=== PATIENT | male | born 1950 | race Caucasian/White ===

== ENCOUNTER → 2018-03-29 | Outpatient (CLI) | payer MEDICARE ==
--- NOTE | 2018-03-29 14:19 | CT ---
EXAMINATION TYPE: CT brain wo con DATE OF EXAM: 03/29/2018 COMPARISON: None INDICATION: Patient fell and hit head 2 weeks ago. Headaches x1 week. DLP: 849.2 mGycm, Automated exposure control for dose reduction was used. CONTRAST: None CT of the brain is performed utilizing 3 mm thick sections through the posterior fossa and 3 mm thick sections through the remaining calvarium. Study is performed within 24 hours of arrival to the hosp [facility]. No abnormal hyperdensity is present to suggest an acute intracranial hemorrhage. No mass lesion is evident. No acute infarcts are evident. Ventricles and sulci are appropriate for the patient age. Paranasal sinuses and mastoid air cells within the [id number]-nsrx are clear. IMPRESSIONS: 1. Normal CT Brain
== END | disposition home or self-care (01) ==
LOC: RADCTMAIN 13:46
PROVIDERS: ATTEND Physician Assistant
DX: S09.90XD Unspecified injury of head, subsequent encounter (principal)
CPT/HCPCS: 70450

== ENCOUNTER → 2019-02-05 | Outpatient (CLI) | payer MEDICARE ==
--- NOTE | 2019-02-05 08:41 | MR ---
EXAMINATION TYPE: MR brain wo/w con DATE OF EXAM: 02/05/2019 COMPARISON: CT brain March 29, 2018. HISTORY: Headache TECHNIQUE: Multiplanar, multisequence images of the brain and brainstem is performed without and with IV contras t, utilizing 12 mL intravenous Gadavist . FINDINGS: Diffusion weighted images demonstrate no evidence of a recent infarct or other diffusion ab normality. There is no worrisome extra-axial fluid collection. The ventricular system and cisternal spaces are normal in size and appearance. The brain volume is age appropriate. Scattered foci of T2 hyperintensity are seen throughout the white matter bilaterally. Approximately 15-20 scattered lesio ns are seen. Lesions are nonspecific in appearance and distribution but are felt most likely on basis of product of chronic small vessel ischemic change in patient of this age. T2 Star weighted images s how no suspicious intraparenchymal blood product. Midline structures demonstrate normal morphology. The craniocervical junction appears within normal limits. Post contrast images demonstrate no abnormal enhancement. The dural venous sinuses appear pa tent. Mild mucosal thickening involving the ethmoid sinuses bilaterally. IMPRESSION: Mild to borderline moderate nonspecific white matter changes may be on basis of altered v ascular mechanics related to product of migraine headaches and/or product of chronic small vessel isc hemic change.
== END | disposition home or self-care (01) ==
LOC: RADMRIMAIN 06:52
PROVIDERS: ATTEND Family Medicine
DX: R90.89 Other abnormal findings on diagnostic imaging of central nervous system (principal)
CPT/HCPCS: 70553; A9585

== ENCOUNTER 2019-12-06 08:09 | Day surgery (SDC) | payer MEDICARE ==
[2019-12-04 13:21] VITALS: BMI 33.0
[~2019-12-06 08:09] MED LIST: LACTATED RINGERS 1,000 ML IV SCH
[2019-12-06 08:34] VITALS: RESP 16; TEMP 97.5
[2019-12-06] MEDS ORDERED: LIDOCAINE 1% (10MG/ML) FOR IV START INTRADERMA ONE (08:35)
[2019-12-06] MEDS ORDERED: PROPOFOL 10 MG/ML 20 ML VIAL IV ONE (08:44)
--- NOTE | 2019-12-06 09:18 | P.PCN ---
Date of Procedure: 12/06/19 Description of Procedure: BRIEF HISTORY: Patient is a pleasant 69-year-old male presenting for high-risk colon screening, history of colon polyps for outpatient colonoscopy. No change in bowel habits, blood per rectum or abdominal pain. Last colonoscopy 5 years ago. PROCEDURE PERFORMED: Colonoscopy with polypectomy. PREOPERATIVE DIAGNOSIS: Personal history of colon polyps, high risk colon cancer screening, colonoscopy 5 years ago. ESTIMATED BLOOD LOSS: Minimal. IV sedation per Anesthesia. PROCEDURE: After informed consent was obtained, the patient, was brought into the endoscopy unit. IV sedation was administered by Anesthesia under continuous monitoring. Digital rectal examination was normal. Initially the Olympus CF-190 flexible video colonoscope was then inserted in the rectum, gradually advanced into the cecum without any difficulty. Careful examination was performed as the scope was gradually being withdrawn. Ileocecal valve and the appendiceal orifice were visualized and appeared normal. Prep was excellent. Mucosa of the cecum, ascending colon, transverse colon, descending colon, sigmoid colon, and rectum appeared normal. A few scattered diverticula noted in the left colon. Diminutive 2 mm ascending colon polyp removed with cold forcep polypectomy. Retroflexion was performed in the rectum and no lesions were seen., Low-grade internal hemorrhoids noted. The patient tolerated the procedure well. IMPRESSION: Diminutive ascending colon polyp removed with cold forcep polypectomy. Mild left colonic diverticulosis. RECOMMENDATIONS: Findings of this examination were discussed with the patient his . Okay to resume diet. Okay to resume medications. Await pathology from polypectomy. Would recommend repeat colonoscopy in 7 years for colon polyps, pending pathology from polypectomy.
[2019-12-06 09:27] VITALS: BP 109/86; PULSE 70
== END 2019-12-06 10:00 | disposition home or self-care (01) ==
LOC: ORWHC2ENDO 08:09
PROVIDERS: ATTEND Internal Medicine
DX: Z12.11 Encounter for screening for malignant neoplasm of colon (principal); D12.2 Benign neoplasm of ascending colon; K57.30 Diverticulosis of large intestine without perforation or abscess without bleeding; I10 Essential (primary) hypertension; Z86.010 Personal history of colon polyps; Z79.899 Other long term (current) drug therapy; Z90.89 Acquired absence of other organs; Z98.41 Cataract extraction status, right eye; Z98.42 Cataract extraction status, left eye; Z98.890 Other specified postprocedural states; Z85.828 Personal history of other malignant neoplasm of skin
CPT/HCPCS: 88305; 45380; J2704

== ENCOUNTER → 2020-01-10 | Outpatient (CLI) | payer MEDICARE | END | disposition home or self-care (01) | LOC: LABWHC1 09:27 | PROVIDERS: ATTEND Family Medicine | DX: Z20.828 Contact with and (suspected) exposure to other viral communicable diseases (principal) | CPT/HCPCS: U0003; C9803 ==

== ENCOUNTER → 2024-01-07 | Outpatient (CLI) | payer MEDICARE ==
[2024-01-07 11:14] LABS: Partial Thromboplastin Time 30.1 sec (22.0-30.0); Prothrombin Time 11.3 sec (10.0-12.5)
[2024-01-07 11:35] LABS: Appearance,Urine Clear (Clear); Bilirubin,Urine Negative (Negative); Blood,Urine Negative (Negative); Color,Urine Light Yellow; Glucose,Urine (UA) Negative (Negative); Ketones,Urine Negative (Negative); Leukocyte Esterase,Urine Negative (Negative); Nitrite,Urine Negative (Negative); Protein,Urine Negative (Negative); Specific Gravity,Urine 1.022 (1.001-1.035); Urobilinogen,Urine <2.0 mg/dL (<2.0)
[2024-01-07 12:56] LABS: Basophils # (A) 0.03 X 10*3/uL (0.00-0.10); Basophils % (A) 0.6 %; Eosinophils # (A) 0.14 X 10*3/uL (0.04-0.35); Eosinophils % (A) 2.8 %; HCT 48.1 % (39.6-50.0); HGB 15.7 g/dL (13.0-17.0); Lymphocytes # (A) 1.15 X 10*3/uL (0.90-5.00); Lymphocytes % (A) 23.2 %; MCH 28.3 pg (27.0-32.0); MCHC 32.6 g/dL (32.0-37.0); MCV 86.7 FL (80.0-97.0); Mean Platelet Volume 11.4 FL (9.5-12.2); Monocytes # (A) 0.55 X 10*3/uL (0.20-1.00); Monocytes % (A) 11.1 %; NRBC Per 100 WBC 0 X 10*3/uL (0.00-0.01); Neutrophils # (A) 3.02 X 10*3/uL (1.80-7.70); Neutrophils % (A) 61.1 %; Platelet Count 208 X 10*3/uL (140-440); RBC 5.55 X 10*6/uL (4.40-5.60); RDW 13.1 % (11.5-14.5); WBC 4.95 X 10*3/uL (4.50-10.00)
[2024-01-07 13:03] LABS: ALT 27 U/L (10-49); AST 21 U/L (14-35); Albumin 4.3 g/dL (3.8-4.9); Albumin/Globulin Ratio 1.79 Ratio (1.60-3.17); Alkaline Phosphatase 104 U/L (41-126); BUN/Creat Ratio 23.22 Ratio (12.00-20.00); Blood Urea Nitrogen 20.9 mg/dL (9.0-27.0); Calcium 9.4 mg/dL (8.7-10.3); Carbon Dioxide 26.3 mmol/L (21.6-31.8); Chloride 104 mmol/L (96-109); Globulin 2.4 g/dL (1.6-3.3); Glucose 98 mg/dL (70-110); Potassium 4.5 mmol/L (3.5-5.5); Sodium 139 mmol/L (135-145); Total Bilirubin 0.7 mg/dL (0.3-1.2); Total Protein 6.7 g/dL (6.2-8.2)
== END | disposition home or self-care (01) ==
LOC: LABPAT 08:25
PROVIDERS: ATTEND Orthopaedic Surgery Orthopaedic Surgery of the Spine
DX: Z01.818 Encounter for other preprocedural examination (principal); M54.10 Radiculopathy, site unspecified
CPT/HCPCS: 80053; 81003; 85025; 85610; 85730; 86850; 86900; 86901; 87070; 93005

== ENCOUNTER 2024-01-18 05:45 | Observation (INO) | payer MEDICARE ==
[2024-01-16 11:05] VITALS: BMI 31.6
[~2024-01-18 05:45] MED LIST changes: +HYDROmorphone 0.5 MG/0.5 ML SYRINGE IVP PRN; -LACTATED RINGERS 1,000 ML IV SCH; +LIDOCAINE 1% (10MG/ML) FOR IV START INTRADERMA PRN
[2024-01-18] MEDS: IV FLUID CONTINUATION 1,000 ML IV ONE ×2 (06:43→06:51)
[2024-01-18] MEDS: ONDANSETRON 4 MG/2 ML VIAL IVP ONE (06:57)
[2024-01-18] MEDS: LACTATED RINGERS 1,000 ML IV SCH (06:57)
[2024-01-18] MEDS ORDERED: fentaNYL (PF) 50 MCG/ML 2 ML AMP ONE (07:25)
[2024-01-18] MEDS ORDERED: SUCCINYLCHOLINE CHLORIDE 200 MG/10 ML VIAL IV ONE (07:25)
[2024-01-18] MEDS ORDERED: ROCURONIUM 10 MG/ML (5 ML VIAL) IV ONE (07:25)
[2024-01-18] MEDS ORDERED: KETAMINE HCL IN 0.9 % NACL 50 MG/5 ML SYRINGE ONE (07:25)
[2024-01-18] MEDS ORDERED: TRANEXAMIC 1,000 MG/100ML-NACL PREMIX BAG ONE (07:25)
[2024-01-18] MEDS ORDERED: PHENYLEPHRINE 10 MG/ML VIAL ONE (07:25)
[2024-01-18] MEDS ORDERED: ePHEDrine 50 MG/ML 1 ML VIAL ONE (07:25)
[2024-01-18] MEDS ORDERED: PROPOFOL 10 MG/ML 20 ML VIAL IV ONE (07:25)
[2024-01-18] MEDS ORDERED: MIDAZOLAM 2 MG/2 ML VIAL ONE (07:25)
[2024-01-18] MEDS ORDERED: NEOSTIGMINE 1 MG/ML 10 ML VIAL ONE (07:25)
[2024-01-18] MEDS ORDERED: LIDOCAINE 1% INJ 10MG/ML (20 ML MDV) ONE (07:25)
[2024-01-18] MEDS ORDERED: PHENYLEPHRINE-0.9% NACL SYG 1,000 MCG/10 ML SYRINGE ONE (07:25)
[2024-01-18] MEDS ORDERED: GLYCOPYRROLATE 0.2 MG/ML 2 ML VIAL ONE (07:25)
[2024-01-18] MEDS: ceFAZolin 1,000 MG in SODIUM CHLORIDE 0.9% IRRIGATIO 1,000 ML IRRIGATION PRN ×2 (08:00→10:00)
[2024-01-18] MEDS: LIDOCAINE 1%-EPI 1:100,000 20 ML VIAL SQ ONE (08:10)
[2024-01-18] MEDS: LACTATED RINGERS 1,000 ML IV ONE (09:00)
[2024-01-18] MEDS ORDERED: diazePAM 5 MG TAB PO PRN (12:29)
[2024-01-18] MEDS ORDERED: ONDANSETRON 4 MG/2 ML VIAL IVP PRN (12:29)
--- NOTE | 2024-01-18 12:36 | P.OP ---
Date of Procedure: 01/18/24 Preoperative Diagnosis: Severe spinal stenosis L3-4 L4-5, lower extreme radiculopathy, neurogenic claudication, low back pain, facet arthrosis, degenerative disc disease Postoperative Diagnosis: Same Anesthesia: GETA Pathology: none sent Condition: stable Disposition: PACU Description of Procedure: DESCRIPTION OF PROCEDURE(S): BRIEF OPERATIVE NOTE Preoperative Diagnosis: Severe spinal stenosis L3-4 L4-5, lower extreme radiculopathy, neurogenic claudication, low back pain, facet arthrosis, degenerative disc disease Postoperative Diagnosis: Same Procedure: Laminectomy and decompression L3-4 L4-[address] navigation aided Minimally invasive Posterior lateral decompression and facet fusion L3-4 L4-5 Minimally invasive Transforaminal lumbar interbody fusion for a 360 fusion L3-4 L4-5 Discectomy for decompression L3-4 L4-5 Placement of interbody graft L3-4 L4-5 Use of computer navigation for fusion Local autogenous bone grafting Use of bone graft extenders Surgeon: Dr. [employer] R[employer] Representative: Ashish LONG who is present throughout the entire the case persistence during positioning, dissection, exposure, visualization, and all crucial elements of the case as well as closure. Anesthesia: General anesthesia per Dr. Ocasio Estimated blood loss: Approximately 350 mL Complications: None apparent Components implanted: K2M minimally invasive [place] pedicle screw system withscrews measuring 6.5 mm in diameter to rods one [place] interbody cage and 1 expandable interbody cage with 10 mL of osteo amp bio4 bone graft substitute and 30 mL of the BX bone fibers to supplement the local autogenous bone graft and bone marrow aspirate Disposition: To recovery room in good stable condition. OPERATIVE INDICATIONS The patient has had severe issues at their lower extremity in her lower back over the past several years with significant worsening over the past several months. Over the past few months the patient had pain at their back and their lower extremities. The patient is having severe radicular symptoms at their lower extremity with weakness. The patient is having significant pain in their back. They are unable to obtain any comfort. We did aggressive conservative treatment with medications therapy and interventional pain management however thery were not having any relief. The patient also showed evidence severe stenosis where decompression alone would cause global iatrogenic instability at the levels.. The patient has been through conservative treatment. We discussed various treatment options including surgery, and the patient wishes to proceed with surgery We discussed the risk, patient's alternatives and benefits of surgery including but not limited to, risk of bleeding risk of infection, risk of need for further surgery, risk of decreased, loss of motion, muscle function, malunion nonunion, hardware failure, nerve damage, paralysis, heart attack, blindness and . They understood issues with the current pandemic and the possibility of exposure. OPERATIVE SUMMARY After discussing all the risks, patient alternatives and benefits at length, the patient elected to proceed with surgical intervention, signed informed consent, and presented for their procedure. The patient was seen and examined in the preoperative holding area and the surgical site was marked. The patient was given antibiotics and brought to the operating room. The patient was sedated and intubated by anesthesia in standard fashion. The patient was positioned on to the operating room table in a prone position on the appropriate frame which was well-padded and well molded. We were careful to pad any bony prominences and pressure points. We were careful to maintain the patient's cervical spine and good neutral alignment and position throughout. The patient was prepped and draped in a normal standard fashion. An appropriate timeout and keystone protocol performed. We were able to proceed with the surgery. The local wound area was infiltrated with local anesthetic. Over the right iliac crest I was able to make small stab incisions and establish a guidepin screw fixation to the iliac crest 2. I was able place the computer referencing device over the guidepins to establish an appropriate reference point for the Ziem CT navigation. We then were able to place patient in an appropriate drape and do a navigation spin for visualization and 3-D reconstruction of the lumbar spine. I was able utilize C-arm guidance and navigation to establish appropriate position over the pedicles bilaterally at the appropriate levels at L3-4 and 5. With the appropriate levels confirmed was able to make small incisions over the appropriate pedicle sites bilaterally. Utilizing the computer navigation device I was able to establish bony landmarks at the right iliac crest for a bony reference point for the navigation device. I was able to establish a Jamshidi needle over the lateral aspect of the pedicle and advanced the trocar into the pedicle being careful not to breech superiorly inferiorly medially or laterally using computer navigation device. Position was confirmed regularly with AP and lateral images on C-arm and with the computer navigation device at the appropriate levels bilaterally. I was able to establish the trocar into the pedicle appropriately into the posterior aspect of the vertebral body bilaterally at the appropriate levels. This was done at each of the pedicle positions and each of the vertebrae. I was able place the guidewire into the trocar and into the vertebral body appropriately under C-arm guidance. Dissection was taken down over the wire to the appropriate starting position for the screw placed. The appropriate length screw was chosen, threaded over the guidewire and screwed appropriately into the pedicle and vertebral body under C-arm guidance in excellent alignment and position with good bony purchase. This is done at each of the screw sites at the appropriate levels at L3-L4 and L5. With the screws intact I extended the incision to connect the screw hole sites on the most symptomatic side on the left. I dissected down to establish access over the pars and lamina to the base of the spinous process. I was able to expose the facet joint. The capsule the facet was taken down and showed some facet arthrosis at the joint. I was able to use a combination of curettes and Kerrison rongeurs and a high-speed drill to take down the facet joint and do a facetectomy. There was severe central and bilateral foraminal stenosis and severe thickening of the ligamentum flavum. This was all taken down well with the decompression at L3-4 and L4-5. I was able get excellent foraminal decompression and central decompression with undermining across midline to perform a laminectomy centrally and contralaterally. As able get good central decompression. The ligamentum flavum was taken down to further decompress centrally and at bilateral neural foramen. I was able to expose the disc space and visualize the traversing nerve root. Note was made of some disc protrusion and disc herniation that was abutting the traversing nerve root at the level causing further compression of the nerve root. I was able to establish a annulo skinny at the appropriate level protecting soft tissue and neural structures. Note was made of some severe disc desiccation at the disc. I performed a complete discectomy with accommodation of curettes and rasps and scrapers. Discectomy provided further decompression of the neural structures. I was able get good endplate preparation at the disc space. I sized for the appropriate size interbody spacer protecting the soft tissue and neural structures. The wound was copiously irrigated and suctioned dry. There is no evidence of any dural tear or leak. I was able to pack the disc space with local autogenous bone graft as well as a small amount of bone graft which was also placed into the interbody cage itself. Protecting the soft tissue structures and neural structures I was able place the interbody cage in good alignment and good position with good fit and fill at the interbody space. Position was confirmed with C-arm guidance. At L4-5 I used a 9 expandable interbody cage and at L3-4 I used an expandable interbody cage which was expanded to appropriate tension under C-arm guidance. Both were found to be in good alignment good position with good stability. Good hemostasis maintained. There is no evidence of any dural tear or leak. The wound was irrigated and suctioned dry. With the hardware intact, intraoperative C-arm imaging was again taken which showed good alignment and position of the hardware at the appropriate levels at L3-4 and 5. We were then able to measure, contour and place the rods and appropriate hardware bilaterally. I was able to place capcrews, tighten them down, and torque them with the torque screwdriver appropriately. With this intact I was able to place the local autogenous bone graft with additional bone graft enhancer as necessary into the posterior lateral gutters over the decorticated transverse processes and facet joints on the contralateral side. The remainder of the bone graft was placed over the facet joint on the contrala teral side after taking down the facet joint capsule. With the bone graft intact, a stable construct, and good decompression at the appropriate levels, we were able to proceed with closure. Good hemostasis was maintained. There is no evidence of dural tear or leak. The fascia was closed for a watertight closure. he subcuticular tissue was closed with absorbable suture. The wound was cleaned and dried and dressed with the appropriate dressing. The drapes were broken down. The patient was gently rolled back onto their hospital bed being careful to maintain their cervical spine and good neutral alignment and position. They were woken up by anesthesia, extubated, and brought to the recovery room in good stable condition. The patient will be admitted to the hospital for appropriate postoperative care, medical management and monitoring. We will continue to follow them closely about the postoperative course.
--- NOTE | 2024-01-18 13:13 | XR ---
EXAMINATION TYPE: XR lumbar spine 2 or 3V, FL guidance operating room DATE OF EXAM: 01/18/2024 11:58 AM COMPARISON: None CLINICAL INDICATION: Male, 74 years old with history of PLDF, , FLUOROSCOPY 41 SEC FL 8.8947 DAP dose 5 images are submitted. Posterior and interbody lumbar fusion [facility], , 01/18/2024 1:10 PM
[2024-01-18] MEDS: droPERidol 5 MG/2 ML VIAL IVP ONE (14:04)
[2024-01-18] MEDS: SODIUM CHLORIDE 0.9% 1,000 ML IV SCH (14:15)
[2024-01-18] MEDS: HYDROmorphone 1 MG/ML 1 ML SYRINGE IVP PRN (15:51)
[2024-01-18] MEDS: lisinopriL 20 MG TAB PO SCH (17:05)
[2024-01-18] MEDS: GABAPENTIN 300 MG CAP PO SCH (20:14)
[2024-01-18] MEDS: CYCLOBENZAPRINE 10 MG TAB PO PRN (20:14)
--- NOTE | 2024-01-18 22:19 | P.CONS ---
History of Present Illness - Reason for Consult Consult date: 01/18/24 Medical management - Chief Complaint Lumbar disc decompression and laminectomy - History of Present Illness Patient is a 74-year-old male with a past medical history of hypertension, osteoarthritis, history of skin cancers, self status post removal from scalp, history of lumbar decompression and fusion and left knee replacement was admitted to the hospital for laminectomy and decompression L3-L4 and L4-L5. Patient was found to have severe spinal stenosis L3-L4 L4-L5 with lower extremity radiculopathy and neurogenic claudication and low back pain. Patient tolerated the procedure very well. Currently resting in bed. Awake alert and oriented. No complaints of chest pain or shortness of breath. Back pain is controlled with medications. Denied any nausea or vomiting. Postoperatively blood pressure 146/70 pulse 92 respiratory 18 and room air. Laboratory data is not available at this time. Review of Systems Constitutional: Patient denies any fever or chills . No generalized weakness or weight loss. Abdomen: Patient denied nausea vomiting and diarrhea and abdominal pain. Cardiovascular: Patient denies any chest pain or short of breath no palpitatio ns. Respiratory: patient denied any cough or sputum production. No shortness of breath Neurologic: Patient denied any numbness or tingling. no headache. Musculoskeletal: Patient denies any complaints of joint swelling or deformity. Skin: Negative Psychiatric: Negative Endocrine: No heat or cold intolerance. No recent weight gain. Genitourinary: No dysuria or hematuria. All other 14 point ROS negative except the above Past Medical History Past Medical History: Cancer, Hypertension, Osteoarthritis (OA) Additional Past Medical History / Comment(s): skin cancer-squamous cell History of Any Multi-Drug Resistant Organisms: None Reported Past Surgical History: Orthopedic Surgery, Tonsillectomy Additional Past Surgical History / Comment(s): winifred cataracts, left knee arthroscopy, skin cancer removed from scalp,pain clinic proceduresl,lt total hip,lt knee total replacement, Lumbar decompression and fusion Past Anesthesia/Blood Transfusion Reactions: No Reported Reaction Additional Past Anesthesia/Blood Transfusion Reaction / Comm: no blood transfusions Past Psychological History: No Psychological Hx Reported Smoking Status: Never smoker Past Alcohol Use History: Rare Past Drug Use History: None Reported - Past Family History Mother Family Medical History: Cancer Additional Family Medical History / Comment(s): breast Medications and Allergies Home Medications Medication Instructions Recorded Confirmed Type lisinopriL 20 mg PO BID@0700,1700 12/04/19 01/18/24 History Acetaminophen [Tylenol Arthritis] 650 mg PO BID 01/16/24 01/18/24 History Gabapentin [Neurontin] 300 mg PO BID 01/16/24 01/18/24 History amLODIPine [Norvasc] 5 mg PO DAILY@0700 01/16/24 01/18/24 History Allergies Allergy/AdvReac Type Severity Reaction Status Date / Time No Known Allergies Allergy Verified 01/18/24 06:18 Physical Exam Vitals: Vital Signs Temp Pulse Resp BP Pulse Ox 01/18/24 19:24 98.1 F 92 18 146/70 98 01/18/24 14:45 98.9 F 91 17 124/66 93 L 01/18/24 13:16 88 16 138/63 98 01/18/24 12:47 79 16 132/59 93 L 01/18/24 12:35 83 16 131/63 96 01/18/24 12:19 97.6 F 77 16 120/57 98 01/18/24 06:22 97.5 F L 78 16 153/72 95 Intake and Output 01/18/24 01/18/24 01/18/24 06:59 14:59 22:59 Intake Total 400 1102 Output Total 700 Balance 400 402 Intake: IV 400 1102 Output: Urine 350 Estimated Blood Loss 350 Other: Voiding Method Indwelling Catheter Weight 112.4 kg 112.4 kg PHYSICAL EXAMINATION: Patient is lying in the bed comfortably, no acute distress, awake alert and oriented.. HEENT: Normocephalic. Neck is supple. Pupils reactive. Nostrils clear. Oral cavity is moist. Neck reveals no JVD, carotid bruits, or thyromegaly. CHEST EXAMINATION: Trachea is central. Symmetrical expansion. Lung cleaning clear to auscultation and percussion. CARDIAC: Normal S1, S2 with no gallops. No murmurs ABDOMEN: Soft. Bowel sounds normal. No organomegaly. No abdominal bruits. Extremities: reveal no edema. No clubbing or cyanosis Neurologically awake, alert, oriented x3 with well-coordinated movements. No focal deficits noted Skin: No rash or skin lesions. Psychiatric: Coperative. Nonsuicidal Musculoskeletal: No joint swelling or deformity. Normal range of motion. Assessment and Plan Assessment: Status post laminectomy and decompression L3-L4 and L4-L5 postoperative day 0 Hypertension fairly controlled. Patient will be started back on home medication including lisinopril and amlodipine. Osteoarthritis History of squamous cell carcinoma removal on the. DVT and GI prophylaxis as per primary team Plan: Patient will be continued on pain management, bowel regimen and encourage incentive spirometry. Started back on lisinopril and amlodipine and titrate medications as needed. PT OT was consulted. Continue with stool softeners as needed. Will follow-up closely and further recommendations based on clinical course. Follow-up CBC and BMP tomorrow. Thank you kindly for your consult.
[2024-01-18] MEDS: HYDROcodone/APAP 7.5-325MG 1 EACH TAB PO PRN (23:34)
[2024-01-18] MEDS: BENZOCAINE/MENTHOL LOZENG 1 EACH LOZENGE MUCOUS MEM PRN (23:34)
[2024-01-19] MEDS: amLODIPine 5 MG TAB PO SCH (08:05)
[2024-01-19] MEDS: SENNOSIDES-DOCUSATE SODIUM 1 EACH TAB PO SCH (08:05)
[2024-01-19 08:53] LABS: Basophils % (A) 0 %; Eosinophils % (A) 0 %; HCT 40.3 % (39.0-53.0); HGB 14.4 gm/dL (13.0-17.5); Lymphocytes # (A) 0.8 k/uL (1.0-4.8); Lymphocytes % (A) 7 %; MCH 31.2 pg (25.0-35.0); MCHC 35.7 g/dL (31.0-37.0); MCV 87.2 fL (80.0-100.0); Mean Platelet Volume 8.2; Monocytes # (A) 0.9 k/uL (0-1.0); Monocytes % (A) 8 %; Neutrophils # (A) 8.8 k/uL (1.3-7.7); Neutrophils % (A) 83 %; Platelet Count 146 k/uL (150-450); RBC 4.62 m/uL (4.30-5.90); RDW 13.2 % (11.5-15.5); WBC 10.6 k/uL (3.8-10.6)
[2024-01-19 09:01] LABS: African American GFR (CKD) >90 (>60 ml/min/1.73 sqM); Anion Gap 2 mmol/L; Blood Urea Nitrogen 16 mg/dL (9-20); Calcium 8.3 mg/dL (8.4-10.2); Carbon Dioxide 27 mmol/L (22-30); Chloride 101 mmol/L (98-107); Glucose 115 mg/dL (74-99); Non-African American GFR(CKD) 88 (>60 ml/min/1.73 sqM); Potassium 3.9 mmol/L (3.5-5.1); Sodium 130 mmol/L (137-145)
--- NOTE | 2024-01-19 09:54 | P.PN ---
Progress Note - Text Progress Note Date: 01/19/24 Postoperative day #1 Patient is seen and examined today at bedside. The patient has some pain around the surgical site as expected. He was able to tolerate adequately overnight. This morning he is with physical therapy and has been able to walk around the bed with his walker adequately. Pain is being controlled with medication. His Blanc is out but he has not yet had a void. He says the pain at his back of his legs is improved. Physical Exam Afebrile with stable vital signs Abdomen is soft nontender. Chest has good excursion deep and space expiration The incision site is clean dry and intact. No erythema there is no purulence. Extremities have not had neurologic change from prior to surgery. He has sustained dorsiflexion plantarflexion EHL intact Calves and thighs were soft nontender without evidence of DVT. Assessment/Plan Postoperative day #1 status post minimally invasive decompression fusion L3-4 L4-5 for his severe spinal stenosis with lower extremity colopathy and neurogenic claudication Patient is progressing as expected from the surgery. It is encouraging that his leg symptoms have improved already. He has been able to walk in his room with his walker We will continue to increase the patient's mobilization with therapy. His Blanc is out but he has not yet voided. He did have some prostate history in the past and hopefully he will be able to void spontaneously. If he is unable he would need to get scanned and possible reinsertion of the Blanc o vernight We will continue pain control with oral or IV medications. We'll continue to follow patient closely.
--- NOTE | 2024-01-20 00:28 | P.PN ---
Subjective Progress Note Date: 01/19/24 Patient is a 74-year-old male with a past medical history of hypertension, osteoarthritis, history of skin cancers, self status post removal from scalp, history of lumbar decompression and fusion and left knee replacement was admitted to the hospital for laminectomy and decompression L3-L4 and L4-L5. Patient was found to have severe spinal stenosis L3-L4 L4-L5 with lower extremity radiculopathy and neurogenic claudication and low back pain. Patient tolerated the procedure very well. Currently resting in bed. Awake alert and oriented. No complaints of chest pain or shortness of breath. Back pain is controlled with medications. Denied any nausea or vomiting. Postoperatively blood pressure 146/70 pulse 92 respiratory 18 and room air. Laboratory data is not available at this time. 01/19/2024 Patient is able to sit in the chair today. Back pain is better. No complaints of chest pain or shortness of breath. Patient denies any involvement today. No cough or sputum production. Patient has been afebrile. Laboratory data showed WBC 10.6 hemoglobin 14.4 and platelets 146 sodium 130 potassium 3.9 chloride 101 bicarb is 27 BUN 16 and creatinine 0.82 and blood sugar is 115. Patient is participating in physical therapy. Able to walk with a walker. Current medications reviewed. Objective - Vital Signs Vital signs: Vital Signs Temp 99.6 F 01/19/24 07:07 Pulse 96 01/19/24 07:07 Resp 18 01/19/24 07:07 BP 124/72 01/19/24 07:07 Pulse Ox 91 L 01/19/24 07:07 FiO2 Intake & Output 01/18/24 01/19/24 01/19/24 18:59 06:59 18:59 Intake Total 1102 Output Total 700 975 Balance 402 -975 Weight 112.4 kg Intake: IV 1102 Output: Urine 350 975 Uretheral (Blanc) 325 Estimated Blood Loss 350 Other: Voiding Method Indwelling Catheter - Exam PHYSICAL EXAMINATION: Patient is lying in the bed comfortably, no acute distress, awake alert and oriented.. HEENT: Normocephalic. Neck is supple. Pupils reactive. Nostrils clear. Oral cavity is moist. Neck reveals no JVD, carotid bruits, or thyromegaly. CHEST EXAMINATION: Trachea is central. Symmetrical expansion. Lung cleaning clear to auscultation and percussion. CARDIAC: Normal S1, S2 with no gallops. No murmurs ABDOMEN: Soft. Bowel sounds normal. No organomegaly. No abdominal bruits. Extremities: reveal no edema. No clubbing or cyanosis Neurologically awake, alert, oriented x3 with well-coordinated movements. No focal deficits noted Skin: No rash or skin lesions. Psychiatric: Coperative. Nonsuicidal Musculoskeletal: No joint swelling or deformity. Normal range of motion. - Labs CBC & Chem 7: 01/19/24 08:21 01/19/24 08:21 Labs: Abnormal Lab Results - Last 24 Hours (Table) 01/19/24 01/19/24 Range/Units 08:21 08:21 Plt Count 146 L (150-450) k/uL Neutrophils # 8.8 H (1.3-7.7) k/uL Lymphocytes # 0.8 L (1.0-4.8) k/uL Sodium 130 L (137-145) mmol/L Glucose 115 H (74-99) mg/dL Calcium 8.3 L (8.4-10.2) mg/dL Assessment and Plan Assessment: Status post laminectomy and decompression L3-L4 and L4-L5 postoperative day 1 Hypertension fairly controlled. Patient was started back on home medication including lisinopril and amlodipine. Osteoarthritis History of squamous cell carcinoma removal on the. DVT and GI prophylaxis as per primary team Plan: Patient will be continued on pain management, bowel regimen and encourage incentive spirometry. Started back on lisinopril and amlodipine and titrate medications as needed. PT OT was consulted. Continue with stool softeners as needed. Will follow-up closely and further recommendations based on clinical course. Patient is participating in physical therapy. Anticipate discharge in the next 24 to 48 hours.
--- NOTE | 2024-01-20 13:00 | XR ---
EXAMINATION TYPE: XR chest 1V DATE OF EXAM: 01/20/2024 COMPARISON: 02/09/2016 CLINICAL INDICATION: Male, 74 years old with history of fever; TECHNIQUE: Single frontal view of the chest is obtained. FINDINGS: Heart mildly enlarged. Left base underpenetrated and not well assessed. Unable to exclude patchy opac ity here. Remainder of the lungs appear clear. No sizable pleural effusion. IMPRESSION: 1. Mild cardiomegaly. 2. Left base underpenetrated and not well assessed. Unable to exclude some patchy atelectasis or rk y infiltrate here. [facility], , 01/20/2024 12:57 PM
--- NOTE | 2024-01-20 14:14 | P.PN ---
Progress Note - Text Progress Note Date: 01/20/24 Postoperative day #2 Patient is seen and examined today at bedside. The patient has some pain around the surgical site as expected. He has gotten up with physical therapy to a chair. He is passing gas. He is voiding freely. He is tolerating his regular diet adequately. Pain is being controlled with medication. Physical Exam Afebrile with stable vital signs Abdomen is soft nontender. Chest has good excursion deep and space expiration The incision site is clean dry and intact. No erythema there is no purulence. Extremities have not had neurologic change from prior to surgery. He has sustained dorsiflexion plantarflexion EHL intact. Calves and thighs were soft nontender without evidence of DVT. Assessment/Plan Postoperative day #2 status post minimally invasive decompression fusion L3-4 L4-5 for severe spinal stenosis with lower extremity radiculopathy and neurogenic claudication Patient is progressing as expected from the surgery. He is improving his mobility and his pain control. He still requiring IV pain supplement regularly. We will continue to increase the patient's mobilization with therapy. He is moving better he is voiding freely and is passing gas well. He may be able to be home in the next 1 to 2 days. We will continue pain control with oral or IV medications. We'll continue to follow patient closely.
[2024-01-21 04:44] LABS: Appearance,Urine Clear (Clear); Bilirubin,Urine Negative (Negative); Blood,Urine Trace (Negative); Budding Yeast,Urine Rare /hpf; Color,Urine Yellow; Glucose,Urine (UA) Negative (Negative); Ketones,Urine Negative (Negative); Leukocyte Esterase,Urine Negative (Negative); Mucus,Urine Occasional /hpf; Nitrite,Urine Negative (Negative); Protein,Urine Trace (Negative); RBC,Urine 5 /hpf (0-5); Specific Gravity,Urine 1.015 (1.001-1.035); Squamous Epithelial Cell,Urine <1 /hpf (0-4); Urobilinogen,Urine <2.0 mg/dL (<2.0); WBC,Urine 5 /hpf (0-5)
[2024-01-21 09:35] LABS: Basophils # (A) 0.02 X 10*3/uL (0.00-0.10); Basophils % (A) 0.2 %; Eosinophils % (A) 1.9 %; HCT 39.2 % (39.6-50.0); HGB 12.8 g/dL (13.0-17.0); Lymphocytes # (A) 1.21 X 10*3/uL (0.90-5.00); Lymphocytes % (A) 11.7 %; MCH 28.6 pg (27.0-32.0); MCHC 32.7 g/dL (32.0-37.0); MCV 87.7 FL (80.0-97.0); Mean Platelet Volume 11.5 FL (9.5-12.2); Monocytes # (A) 1.19 X 10*3/uL (0.20-1.00); Monocytes % (A) 11.5 %; NRBC Per 100 WBC 0 X 10*3/uL (0.00-0.01); Neutrophils # (A) 7.65 X 10*3/uL (1.80-7.70); Neutrophils % (A) 74.1 %; Platelet Count 157 X 10*3/uL (140-440); RBC 4.47 X 10*6/uL (4.40-5.60); RDW 13.1 % (11.5-14.5); WBC 10.33 X 10*3/uL (4.50-10.00)
[2024-01-21 09:40] LABS: Blood Urea Nitrogen 11.6 mg/dL (9.0-27.0); Calcium 8.3 mg/dL (8.7-10.3); Carbon Dioxide 23.7 mmol/L (21.6-31.8); Chloride 101 mmol/L (96-109); Glucose 105 mg/dL (70-110); Potassium 3.7 mmol/L (3.5-5.5); Sodium 134 mmol/L (135-145)
--- NOTE | 2024-01-21 10:18 | P.PN ---
Progress Note - Text Progress Note Date: 01/21/24 Postoperative day #3 Patient is seen and examined today at bedside. The patient has some pain around the surgical site as expected. Pain is being controlled with medication. He does not feel that the oral medications are doing a great job but the IV Dilaudid is doing well. He has been taking oral Violet. Physical Exam Afebrile with stable vital signs Abdomen is soft nontender. Chest has good excursion deep and space expiration The incision site is clean dry and intact. No erythema there is no purulence. There is no active drainage there is no erythema. The area is soft Extremities have not had neurologic change from prior to surgery. He has sustained dorsiflexion plantarflexion EHL intact He is able to stand up but he is not standing straight due to pain Calves and thighs were soft nontender without evidence of DVT. Assessment/Plan Postoperative day #3 status post minimally invasive decompression fusion L3-4 L4-5 for his severe spinal stenosis with lower extremity radiculopathy and neurogenic claudication Patient is progressing as expected from the surgery. He is moving somewhat slowly when he is trying to change positions but he is standing better he is voiding freely. He is passing gas but not yet had a bowel movement. He does not feel that the oral Violet is doing very well and we can try to switch to Percocet to see if that does better for him. We will continue to increase the patient's mobilization with therapy. We will continue pain control with oral or IV medications. Were hoping that he may be able to be home tomorrow or if not then possibly Tuesday. We'll continue to follow patient closely.
[2024-01-21] MEDS: oxyCODONE-APAP 7.5-325MG 1 EACH TAB PO PRN (17:43)
[2024-01-22] MEDS ORDERED: bisacodyL 10 MG SUPP RECTAL PRN (11:55)
--- NOTE | 2024-01-22 11:58 | P.PN ---
Progress Note - Text Progress Note Date: 01/22/24 Postoperative day #4 Patient is seen and examined today at bedside. The patient has some pain around the surgical site as expected. He is able to stand up with a walker but he is having difficulty getting around and feeling stable. He is not having weakness in his lower extremities but has occasional sharp sciatic pain on the left. pain is being controlled with medication. He thinks that the Percocet is doing a little bit better than the Gloster was. He still requiring Dilaudid Physical Exam Afebrile with stable vital signs Abdomen is soft nontender. Chest has good excursion deep and space expiration The incision site is clean dry and intact. No erythema there is no purulence. There is no drainage there is no evidence of any infection. Extremities have not had neurologic change from prior to surgery. Calves and thighs were soft nontender without evidence of DVT. Assessment/Plan Postoperative day #4 status post minimally invasive decompression fusion L3-4 L4-5 for severe spinal stenosis with lower extremity colopathy Patient is progressing a little bit slowly from the surgery in terms of his mobility. We will continue to increase the patient's mobilization with therapy. I think that he may require custodial posthospitalization and we will have case management see him He still requiring oral and IV pain medications. He is doing a little bit better with the Percocet. We will continue pain control with oral or IV medications. He has not yet had a bowel movement but he is passing gas. Will add Dulcolax to see if this helps. We'll continue to follow patient closely.
[2024-01-22] MEDS: bisacodyL 5 MG TABLET.DR PO PRN (13:40)
--- NOTE | 2024-01-22 20:55 | P.PN ---
Subjective Progress Note Date: 01/20/24 Patient is a 74-year-old male with a past medical history of hypertension, osteoarthritis, history of skin cancers, self status post removal from scalp, history of lumbar decompression and fusion and left knee replacement was admitted to the hospital for laminectomy and decompression L3-L4 and L4-L5. Patient was found to have severe spinal stenosis L3-L4 L4-L5 with lower extremity radiculopathy and neurogenic claudication and low back pain. Patient tolerated the procedure very well. Currently resting in bed. Awake alert and oriented. No complaints of chest pain or shortness of breath. Back pain is controlled with medications. Denied any nausea or vomiting. Postoperatively blood pressure 146/70 pulse 92 respiratory 18 and room air. Laboratory data is not available at this time. 01/19/2024 Patient is able to sit in the chair today. Back pain is better. No complaints of chest pain or shortness of breath. Patient denies any involvement today. No cough or sputum production. Patient has been afebrile. Laboratory data showed WBC 10.6 hemoglobin 14.4 and platelets 146 sodium 130 potassium 3.9 chloride 101 bicarb is 27 BUN 16 and creatinine 0.82 and blood sugar is 115. Patient is participating in physical therapy. Able to walk with a walker. 01/20/2024 Patient is resting in the bed comfortably. Awake alert and oriented x 3. On room air. Back pain is controlled. No complaints of chest pain or shortness of breath. No nausea vomiting abdominal pain or diarrhea. Denied any dysuria or hematuria. Otherwise patient was febrile with Tmax 101.1 last night. Chest x- ray and urinalysis was ordered to rule out infection. Chest x-ray showed left base underpenetrated and not well assessed. Unable to exclude some patchy atelectasis or early infiltrate here. Incentive spirometry was started. Laboratory reviewed. Urinalysis is negative for infection. Current medications reviewed. Objective - Vital Signs Vital signs: Vital Signs Temp 99.2 F 01/20/24 07:20 Pulse 107 H 01/20/24 07:20 Resp 18 01/20/24 08:00 BP 161/72 01/20/24 07:20 Pulse Ox 93 L 01/20/24 08:59 FiO2 Intake & Output 01/19/24 01/20/24 01/20/24 18:59 06:59 18:59 Intake Total 4040 200 Output Total 1050 4350 400 Balance -1050 -310 -200 Intake: Oral 4040 200 Output: Urine 600 4350 400 Straight 600 Post Void Residual 450 Other: Voiding Method Urinal Urinal # Voids 1 1 - Exam PHYSICAL EXAMINATION: Patient is lying in the bed comfortably, no acute distress, awake alert and oriented.. HEENT: Normocephalic. Neck is supple. Pupils reactive. Nostrils clear. Oral cavity is moist. Neck reveals no JVD, carotid bruits, or thyromegaly. CHEST EXAMINATION: Trachea is central. Symmetrical expansion. Lung cleaning clear to auscultation and percussion. CARDIAC: Normal S1, S2 with no gallops. No murmurs ABDOMEN: Soft. Bowel sounds normal. No organomegaly. No abdominal bruits. Extremities: reveal no edema. No clubbing or cyanosis Neurologically awake, alert, oriented x3 with well-coordinated movements. No focal deficits noted Skin: No rash or skin lesions. Psychiatric: Coperative. Nonsuicidal Musculoskeletal: No joint swelling or deformity. Normal range of motion. - Labs CBC & Chem 7: 01/21/24 03:08 01/21/24 03:08 Assessment and Plan Assessment: Fever. Possible atelectasis versus early infiltrate. Resolved now. Follow-up chest x-ray and UA Status post laminectomy and decompression L3-L4 and L4-L5 postoperative day 2 Hypertension fairly controlled. Patient was started back on home medication including lisinopril and amlodipine. Osteoarthritis History of squamous cell carcinoma removal on the. DVT and GI prophylaxis as per primary team Plan: Patient will be continued on pain management, bowel regimen and encourage incentive spirometry. Continue to monitor for any further episodes of fever. Follow-up chest x-ray and UA. Space patient is otherwise improving clinically. Started back on lisinopril and amlodipine and titrate medications as needed. PT OT was consulted. Continue with stool softeners as needed. Will follow-up closely and further recommendations based on clinical course. Patient is participating in physical therapy. Anticipate discharge in the next 24 to 48 hours.
[2024-01-22] MEDS: diphenhydrAMINE 50 MG/ML 1 ML VIAL IVP PRN (21:34)
[2024-01-23 08:34] LABS: HCT 37.4 % (39.6-50.0); HGB 12.1 g/dL (13.0-17.0); MCHC 32.4 g/dL (32.0-37.0); MCV 89.7 FL (80.0-97.0); Mean Platelet Volume 11.4 FL (9.5-12.2); NRBC Per 100 WBC 0 X 10*3/uL (0.00-0.01); Platelet Count 202 X 10*3/uL (140-440); RBC 4.17 X 10*6/uL (4.40-5.60); RDW 12.7 % (11.5-14.5); WBC 5.62 X 10*3/uL (4.50-10.00)
[2024-01-23 08:35] LABS: Basophils # (A) 0.04 X 10*3/uL (0.00-0.10); Basophils % (A) 0.7 %; Eosinophils # (A) 0.35 X 10*3/uL (0.04-0.35); Eosinophils % (A) 6.2 %; Lymphocytes # (A) 1.38 X 10*3/uL (0.90-5.00); Lymphocytes % (A) 24.6 %; Monocytes # (A) 0.78 X 10*3/uL (0.20-1.00); Monocytes % (A) 13.9 %; Neutrophils # (A) 3.02 X 10*3/uL (1.80-7.70); Neutrophils % (A) 53.7 %
[2024-01-23 08:46] LABS: BUN/Creat Ratio 16.88 Ratio (12.00-20.00); Blood Urea Nitrogen 13.5 mg/dL (9.0-27.0); Glucose 92 mg/dL (70-110)
[2024-01-23 08:47] LABS: Calcium 8.7 mg/dL (8.7-10.3); Chloride 100 mmol/L (96-109); Potassium 3.9 mmol/L (3.5-5.5); Sodium 136 mmol/L (135-145)
[2024-01-23] MEDS ORDERED: ACETAMINOPHEN TAB 325 MG TAB PO PRN (10:24)
[2024-01-23] MEDS: LACTULOSE 20 GM/30 ML CUP PO ONE (11:43)
--- NOTE | 2024-01-23 12:28 | P.DS ---
Providers Date of admission: 01/19/24 15:20 Attending physician: Chava Reyes Consults: 01/18/24 12:29 Consult Physician Routine Consulting Provider: David Hannon Consult Reason/Comments: Medical management Do you want consulting provider notified?: Yes Primary care physician: David Hannon [facility] Course: The patient presented on the day of admission as per their operative note. He has severe spinal stenosis with lower extreme radiculopathy and some weakness and difficulty ambulating and underwent decompression fusion L3-4 L4-5 for severe spinal stenosis. He has been making progress but is still requiring significant assistance with his mobility. His pain is better controlled and we are transitioning to oral medications adequately. Physical Exam The incision site is clean dry and intact. There is no erythema no drainage. There is no purulence no evidence of infection. Abdomen soft and nontender. Chest has good excursion with deep inspiration and expiration. The patient has active and passive range of motion intact at the upper and lower extremities. There is no acute change in neurologic status. He has sustained dorsiflexion plantarflexion EHL intact Hospital Course Postoperative day #5 status post decompression fusion L3-4 L4-5 for his severe spinal stenosis with lower extremity colopathy The patient has been inpatient due to surgery. The patient has been making slow but steady progress postoperatively. He is still requiring significant assistance for his safety for his mobilization and ambulation. I think that he can do well with [facility] facility for another several days prior to returning home so that he can be safe at home appropriately. They have completed the prophylactic antibiotics without any signs or symptoms of infection. The patient has been able to advance their diet, and is tolerating diet adequately. The pain was initially controlled with IV medications and is now controlled appropriately with oral medications. The patient has been able to increase their mobilization. The patient has progressed appropriately. I think they are in good stable condition for discharge today to [facility]. They will be sent home with appropriate prescriptions. I answered their questions to the best of my ability in a language that they can understand and they are agreeable with the plan. They will follow up as directed in approximately 2 weeks or sooner if there are any problems. Patient Condition at Discharge: Fair Plan - Discharge Summary Discharge Rx Participant: Yes New Discharge Prescriptions: New Cyclobenzaprine [Flexeril] 10 mg PO TID PRN #90 tab PRN Reason: Spasms Hydrocodone/Acetaminophen [Hydrocodone/Acetaminophen 7.5-325] 1 - 2 tab PO Q6H PRN #56 tab PRN Reason: Pain No Action lisinopriL 20 mg PO BID@0700,1700 amLODIPine [Norvasc] 5 mg PO DAILY@0700 Gabapentin [Neurontin] 300 mg PO BID Acetaminophen [Tylenol Arthritis] 650 mg PO BID Discharge Medication List lisinopriL 20 mg PO BID@0700,1700 12/04/19 [History] Acetaminophen [Tylenol Arthritis] 650 mg PO BID 01/16/24 [History] Gabapentin [Neurontin] 300 mg PO BID 01/16/24 [History] amLODIPine [Norvasc] 5 mg PO DAILY@0700 01/16/24 [History] Cyclobenzaprine [Flexeril] 10 mg PO TID PRN #90 tab 01/20/24 [Rx] Hydrocodone/Acetaminophen [Hydrocodone/Acetaminophen 7.5-325] 1 - 2 tab PO Q6H PRN #56 tab 01/20/24 [Rx] Follow up Appointment(s)/Referral(s): Chava Reyes DO [Doctor of Osteopathic Medicine] - 2 Weeks Activity/Diet/Wound Care/Special Instructions: Keep site clean. May shower with waterproof Tegaderm intact. Do not soak in a tub. After 72 hours postoperatively, patient May remove dressing and then may shower with area uncovered. Leave glue intact and allow it to fray off on its own. May ambulate as tolerated. Avoid heavy or rigorous activity. No repetitive bending twisting or lifting. No overhead work.
[2024-01-23] MEDS: PSYLLIUM HUSK 100% 6 GM PACKET PO SCH (12:39)
[2024-01-23] MEDS: MAGNESIUM CITRATE 296 ML BOTTLE PO ONE (16:56)
--- NOTE | 2024-01-23 21:12 | P.PN ---
Progress Note - Text Progress Note Date: 01/23/24 Patient is a 74-year-old male with a past medical history of hypertension, osteoarthritis, history of skin cancers, self status post removal from scalp, history of lumbar decompression and fusion and left knee replacement was admitted to the hospital for laminectomy and decompression L3-L4 and L4-L5. Patient was found to have severe spinal stenosis L3-L4 L4-L5 with lower extremity radiculopathy and neurogenic claudication and low back pain. Patient tolerated the procedure very well. Currently resting in bed. Awake alert and oriented. No complaints of chest pain or shortness of breath. Back pain is controlled with medications. Denied any nausea or vomiting. Postoperatively blood pressure 146/70 pulse 92 respiratory 18 and room air. Laboratory data is not available at this time. 01/19/2024 Patient is able to sit in the chair today. Back pain is better. No complaints of chest pain or shortness of breath. Patient denies any involvement today. No cough or sputum production. Patient has been afebrile. Laboratory data showed WBC 10.6 hemoglobin 14.4 and platelets 146 sodium 130 potassium 3.9 chloride 101 bicarb is 27 BUN 16 and creatinine 0.82 and blood sugar is 115. Patient is participating in physical therapy. Able to walk with a walker. 01/20/2024 Patient is resting in the bed comfortably. Awake alert and oriented x 3. On room air. Back pain is controlled. No complaints of chest pain or shortness of breath. No nausea vomiting abdominal pain or diarrhea. Denied any dysuria or hematuria. Otherwise patient was febrile with Tmax 101.1 last night. Chest x- ray and urinalysis was ordered to rule out infection. Chest x-ray showed left base underpenetrated and not well assessed. Unable to exclude some patchy atelectasis or early infiltrate here. Incentive spirometry was started. Laboratory reviewed. Urinalysis is negative for infection. January 23, 2024: I assumed care of the patient today. Patient still having significant pain at the operative site. Has worked a bit in the room. Making good urine. Has not had a bowel movement. Accepted ordered. Patient eating well otherwise. Active Medications Acetaminophen (Acetaminophen Tab 325 Mg Tab) 650 mg PO Q6HR PRN PRN Reason: Mild Pain or Fever > 100.5 Amlodipine Besylate (Amlodipine 5 Mg Tab) 5 mg PO DAILY@0700 [facility] Stop: 02/18/24 06:59 Last Admin: 01/23/24 06:42 Dose: 5 mg Benzocaine/Menthol (Benzocaine/Menthol Lozeng 1 Each Lozenge) 1 each MUCOUS MEM Q4HR PRN PRN Reason: Sore Throat Stop: 02/17/24 12:28 Last Admin: 01/19/24 20:03 Dose: 1 each Bisacodyl (Bisacodyl 5 Mg Tablet.Dr) 10 mg PO DAILY PRN PRN Reason: Constipation Last Admin: 01/22/24 13:40 Dose: 10 mg Bisacodyl (Bisacodyl 10 Mg Supp) 10 mg RECTAL ONCE PRN PRN Reason: Constipation Stop: 01/29/24 11:54 Cyclobenzaprine HCl (Cyclobenzaprine 10 Mg Tab) 10 mg PO TID PRN PRN Reason: Muscle Spasm Stop: 02/17/24 12:28 Last Admin: 01/23/24 11:46 Dose: 10 mg Diazepam (Diazepam 5 Mg Tab) 5 mg PO QID PRN PRN Reason: Anxiety Stop: 02/17/24 12:28 Diphenhydramine HCl (Diphenhydramine 50 Mg/Ml 1 Ml Vial) 25 mg IVP Q8HR PRN PRN Reason: Itching Last Admin: 01/23/24 06:42 Dose: 25 mg Gabapentin (Gabapentin 300 Mg Cap) 300 mg PO BID [facility] Stop: 02/17/24 20:59 Last Admin: 01/23/24 20:10 Dose: 300 mg Hydromorphone HCl (Hydromorphone 1 Mg/Ml 1 Ml Syringe) 1 mg IVP Q4HR PRN PRN Reason: Severe Pain (Scale 7 to 10) Stop: 02/17/24 12:28 Last Admin: 01/23/24 04:35 Dose: 1 mg Lactated Ringer's (Lactated Ringers) 1,000 mls @ 20 mls/hr IV .Q24H [facility] Stop: 02/17/24 05:28 Last Admin: 01/23/24 06:31 Dose: Not Given Lidocaine HCl (Lidocaine 1% (10mg/Ml) For Iv Start) 0.1 ml INTRADERMA PER PROTOCOL PRN PRN Reason: IV Start Stop: 02/17/24 05:28 Lisinopril (Lisinopril 20 Mg Tab) 20 mg PO BID@0700,1700 [facility] Stop: 02/17/24 16:59 Last Admin: 01/23/24 16:56 Dose: 20 mg Ondansetron HCl (Ondansetron 4 Mg/2 Ml Vial) 4 mg IVP Q8HR PRN PRN Reason: Nausea And Vomiting Stop: 02/17/24 12:28 Oxycodone/Acetaminophen (Oxycodone-Apap 7.5-325mg 1 Each Tab) 1 each PO Q4HR PRN PRN Reason: Moderate Pain (Scale 4 to 6) Last Admin: 01/23/24 20:10 Dose: 1 each Psyllium Hydrophilic Mucilloid (Psyllium Husk 100% 6 Gm Packet) 6 gm PO BID [facility] Last Admin: 01/23/24 20:04 Dose: Not Given Senna/Docusate Sodium (Sennosides-Docusate Sodium 1 Each Tab) 1 each PO DAILY [facility] Stop: 02/18/24 08:59 Last Admin: 01/23/24 08:53 Dose: 1 each On examination: VITAL SIGNS: [98, 88, 18, 129 x 70, 98% room air] GENERAL APPEARANCE: MELVI 32.7, up in a chair. HEENT: Normal external appearance of nose and ear. Oral cavity normal EYES: Pupils equal. Conjunctiva normal. NECK: JVD not raised. Mass not palpable. RESPIRATORY: Respiratory effort normal. Lungs clear to auscultation. CARDIOVASCULAR: First and second sounds normal. No edema. ABDOMEN: Soft. Liver and spleen not palpable. No tenderness. No mass palpable. PSYCHIATRY: Alert and oriented x3. Mood and affect normal. INVESTIGATIONS, reviewed in the clinical context: January 22: White count 5.6 hemoglobin 12.1 platelets 202 potassium 3.9 creatinine 0.8 UA: Trace protein. Trace blood. January 18: Hemoglobin 14.4 Chest x-ray possible patchy right testis Assessment and plan: -Low-grade fever. Possible atelectasis denies urinary symptoms -Status post laminectomy and decompression L3-L4 and L4-L5 postoperative day 2. Patient has some significant pain at the operative site. Pain medications per surgical team -Essential hypertension lisinopril and amlodipine. -Osteoarthritis -Acute postprocedure blood loss anemia expected from surgery Add ferrous sulfate -Acute constipation from decreased activity and narcotics. Patient not had a bowel movement for day 6 Laxatives ordered. Add ferrous sulfate. Laxative. Increase activity.
[2024-01-23] MEDS: FERROUS SULFATE 325 MG TAB PO SCH (23:31)
--- NOTE | 2024-01-24 12:08 | P.DS ---
Providers Date of admission: 01/19/24 15:20 Attending physician: Chava Reyes Consults: 01/18/24 12:29 Consult Physician Routine Consulting Provider: David Hannon Consult Reason/Comments: Medical management Do you want consulting provider notified?: Yes Primary care physician: David Hannon [facility] Course: The patient presented on the day of admission as per their operative note. He underwent minimally invasive decompression fusion L4-5 L5 3 4 for his spinal stenosis with lower extremity colopathy and difficulty with his mobilization and ambulation. The patient has been making slow but steady progress postoperatively. He has been able to convert over to oral medications. He is voiding freely and has had a bowel movement yesterday. He is tolerating his regular diet. He still has difficulty with changing positions and getting around but he is able to transfer on his own to some degree. Physical Exam The incision site is clean dry and intact. There is no erythema no drainage. There is no purulence no evidence of infection. There are some diffuse swelling without any erythema. There is no purulence there is no fluctuant mass Abdomen soft and nontender. Chest has good excursion with deep inspiration and expiration. The patient has active and passive range of motion intact at the upper and lower extremities. There is no acute change in neurologic status. He has sustained dorsiflexion plantarflexion [facility] intact Hospital Course Postoperative day #6 status post minimally invasive decompression fusion L3-4 L4-5 for severe spinal stenosis with lower extremity radiculopathy Limited mobility and ambulation postoperatively the patient has been making slow but steady progress postoperatively. They have completed the prophylactic antibiotics without any signs or symptoms of infection. The patient has been able to advance their diet, and is tolerating diet adequately. The pain was initially controlled with IV medications and is now controlled appropriately with oral medications. The patient has been able to increase their mobilization, to a decent degree but still has difficulty with some of his mobility and ambulation. The patient has progressed appropriately. I think they are in good stable condition for discharge today to custodial facility. He has been approved for custodial facility appropriately. He is seeing what kind of help will be available potentially at home if he decides to do that and it is appropriate and I would be okay with that. They will be sent home with appropriate prescriptions. I answered their questions to the best of my ability in a language that they can understand and they are agreeable with the plan. They will follow up as directed. Patient Condition at Discharge: Fair Plan - Discharge Summary Discharge Rx Participant: Yes New Discharge Prescriptions: New Cyclobenzaprine [Flexeril] 10 mg PO TID PRN #90 tab PRN Reason: Spasms Ferrous Sulfate [Iron (65 MG Elemental)] 325 mg PO W/LUNCH tab Sennosides-Docusate Sodium [Senokot-S] 1 each PO DAILY tab Acetaminophen Tab [Tylenol] 650 mg PO Q6HR PRN tab PRN Reason: Mild Pain Or Fever > 100.5 Hydrocodone/Acetaminophen [Hydrocodone/Acetaminophen 7.5-325] 1 - 2 tab PO Q6H PRN #56 tab PRN Reason: Pain oxyCODONE HCL/ACETAMINOPHEN [Percocet 7.5-325 mg] 1 tab PO Q4HR PRN #43 tab PRN Reason: Pain bisacodyL [Dulcolax] 10 mg PO DAILY PRN tab PRN Reason: Constipation Psyllium Husk 100% [Metamucil Packet] 6 gm PO BID packet Continue lisinopriL 20 mg PO BID@0700,1700 amLODIPine [Norvasc] 5 mg PO DAILY@0700 Gabapentin [Neurontin] 300 mg PO BID Discontinued Acetaminophen [Tylenol Arthritis] 650 mg PO BID Discharge Medication List lisinopriL 20 mg PO BID@0700,1700 12/04/19 [History] Gabapentin [Neurontin] 300 mg PO BID 01/16/24 [History] amLODIPine [Norvasc] 5 mg PO DAILY@0700 01/16/24 [History] Cyclobenzaprine [Flexeril] 10 mg PO TID PRN #90 tab 01/20/24 [Rx] Hydrocodone/Acetaminophen [Hydrocodone/Acetaminophen 7.5-325] 1 - 2 tab PO Q6H PRN #56 tab 01/20/24 [Rx] oxyCODONE HCL/ACETAMINOPHEN [Percocet 7.5-325 mg] 1 tab PO Q4HR PRN #43 tab 01/23/24 [Rx] Acetaminophen Tab [Tylenol] 650 mg PO Q6HR PRN tab 01/24/24 [Rx] Ferrous Sulfate [Iron (65 MG Elemental)] 325 mg PO W/LUNCH tab 01/24/24 [Rx] Psyllium Husk 100% [Metamucil Packet] 6 gm PO BID packet 01/24/24 [Rx] Sennosides-Docusate Sodium [Senokot-S] 1 each PO DAILY tab 01/24/24 [Rx] bisacodyL [Dulcolax] 10 mg PO DAILY PRN tab 01/24/24 [Rx] Follow up Appointment(s)/Referral(s): David Hannon DO [Primary Care Provider] - 1 Week ([facility] please call for follow- up appointment.) Chava Reyes DO [Doctor of Osteopathic Medicine] - 02/03/24 9:00 am (With Francisco) Activity/Diet/Wound Care/Special Instructions: Keep site clean. patient May remove dressing and then may shower with area uncovered. Leave glue intact and allow it to fray off on its own. May ambulate as tolerated. Avoid heavy or rigorous activity. No repetitive bending twisting or lifting. No overhead work. Discharge Disposition: TRANSFER TO SNF/ECF
[2024-01-24 14:28] VITALS: BP 136/87; PULSE 96; RESP 18; TEMP 98
--- NOTE | 2024-01-24 15:48 | P.PN ---
Progress Note - Text Progress Note Date: 01/24/24 Patient is a 74-year-old male with a past medical history of hypertension, osteoarthritis, history of skin cancers, self status post removal from scalp, history of lumbar decompression and fusion and left knee replacement was admitted to the hospital for laminectomy and decompression L3-L4 and L4-L5. Patient was found to have severe spinal stenosis L3-L4 L4-L5 with lower extremity radiculopathy and neurogenic claudication and low back pain. Patient tolerated the procedure very well. Currently resting in bed. Awake alert and oriented. No complaints of chest pain or shortness of breath. Back pain is controlled with medications. Denied any nausea or vomiting. Postoperatively blood pressure 146/70 pulse 92 respiratory 18 and room air. Laboratory data is not available at this time. 01/19/2024 Patient is able to sit in the chair today. Back pain is better. No complaints of chest pain or shortness of breath. Patient denies any involvement today. No cough or sputum production. Patient has been afebrile. Laboratory data showed WBC 10.6 hemoglobin 14.4 and platelets 146 sodium 130 potassium 3.9 chloride 101 bicarb is 27 BUN 16 and creatinine 0.82 and blood sugar is 115. Patient is participating in physical therapy. Able to walk with a walker. 01/20/2024 Patient is resting in the bed comfortably. Awake alert and oriented x 3. On room air. Back pain is controlled. No complaints of chest pain or shortness of breath. No nausea vomiting abdominal pain or diarrhea. Denied any dysuria or hematuria. Otherwise patient was febrile with Tmax 101.1 last night. Chest x- ray and urinalysis was ordered to rule out infection. Chest x-ray showed left base underpenetrated and not well assessed. Unable to exclude some patchy atelectasis or early infiltrate here. Incentive spirometry was started. Laboratory reviewed. Urinalysis is negative for infection. January 23, 2024: I assumed care of the patient today. Patient still having significant pain at the operative site. Has worked a bit in the room. Making good urine. Has not had a bowel movement. Accepted ordered. Patient eating well otherwise. January 23: Patient had 2 large bowel movements including 1 yesterday evening. Eating well. Feeling better. Actually surgical site pain is better. Patient is getting discharged home. On examination: VITAL SIGNS: 98, 96, 18, 136 per 87, 99% room air GENERAL APPEARANCE: MELVI 32.7, comfortable HEENT: Normal external appearance of nose and ear. Oral cavity normal EYES: Pupils equal. Conjunctiva normal. NECK: JVD not raised. Mass not palpable. RESPIRATORY: Respiratory effort normal. Lungs clear to auscultation. CARDIOVASCULAR: First and second sounds normal. No edema. ABDOMEN: Soft. Liver and spleen not palpable. No tenderness. No mass palpable. PSYCHIATRY: Alert and oriented x3. Mood and affect normal. INVESTIGATIONS, reviewed in the clinical context: January 22: White count 5.6 hemoglobin 12.1 platelets 202 potassium 3.9 creatinine 0.8 UA: Trace protein. Trace blood. January 18: Hemoglobin 14.4 Chest x-ray possible patchy right testis Assessment and plan: -Low-grade fever. Possible atelectasis denies urinary symptoms -Status post laminectomy and decompression L3-L4 and L4-L5 postoperative day 2. Patient has some significant pain at the operative site. Pain medications per surgical team -Essential hypertension lisinopril and amlodipine. -Osteoarthritis -Acute postprocedure blood loss anemia expected from surgery Added: Ferrous sulfate -Acute constipation from decreased activity and narcotics. Patient not had a bowel movement for day 6 Had a large bowel movement yesterday evening and this morning. Discussed with patient. Questions answered. Follow-up with PCP upon discharge.
== END 2024-01-24 15:06 ==
LOC: OR 05:45 → 4SSUR 12:02 → OR 01-19 15:20 → 4SSUR 01-19 15:20
PROVIDERS: ADMIT Orthopaedic Surgery Orthopaedic Surgery of the Spine; ATTEND Orthopaedic Surgery Orthopaedic Surgery of the Spine
DX: M48.062 Spinal stenosis, lumbar region with neurogenic claudication (principal); M47.26 Other spondylosis with radiculopathy, lumbar region; M51.16 Intervertebral disc disorders with radiculopathy, lumbar region; R50.9 Fever, unspecified; D62 Acute posthemorrhagic anemia; K59.03 Drug induced constipation; T40.605A Adverse effect of unspecified narcotics, initial encounter; I10 Essential (primary) hypertension; M19.90 Unspecified osteoarthritis, unspecified site; Z85.828 Personal history of other malignant neoplasm of skin; Z79.899 Other long term (current) drug therapy
CPT/HCPCS: 97116; 97530 ×3; 97166; 80048 ×2; 85025 ×2; 72100; 22633; 22634; 20936; 61783; G0378 ×6; C1713 ×2; C1762; J1200 ×2; J0690 ×2; J2405; J1171 ×3